=== PATIENT | female | born 1985 | race Caucasian/White ===

== ENCOUNTER 2017-02-17 08:14 | Emergency (ER) | payer SELFPAY ==
[2017-02-17 10:34] LABS: APPEARANCE,URINE SLIGHTLY-CLOUDY; BILIRUBIN,URINE NEGATIVE (NEGATIVE); GLUCOSE, URINE NEGATIVE (NEGATIVE); KETONES,URINE NEGATIVE (NEGATIVE); LEUKOCYTE ESTERASE,URINE TRACE (NEGATIVE); NITRITE,URINE NEGATIVE (NEGATIVE); PROTEIN,URINE NEGATIVE (NEGATIVE); UROBILINOGEN,URINE NEGATIVE mg/dL (<2.0)
--- NOTE | 2017-02-17 11:40 | ER Document Report ---
ED GI/ - General Mode of Arrival: Ambulatory Information source: Patient TRAVEL OUTSIDE OF THE [place] IN LAST 30 DAYS: No - HPI Patient complains to provider of: Other Location: RLQ Similar symptoms previously: Yes Recently seen / treated by doctor: Yes - General Chief Complaint: Pelvic Pain Stated Complaint: ABDOMINAL PAIN Notes: Patient is a 32-year-old female that presents to the emergency department today with complaints of right lower quadrant abdominal pain. Patient states she has had similar pain in the past and was seen and evaluated here. Patient states she had a transvaginal ultrasound done here however she left before obtaining her results a few months back. Patient states since then she followed up with her WRAP CHECKER wants for a routine Pap smear, she states that she attempted to speak with him about this pain and he told her it was "scar tissue". Patient states she has had diarrhea. Patient states she always has this pain over what she believes is her right ovary during menstruation. Patient denies any urinary symptoms, nausea, or vomiting. (MARCY HAYWARD) - Related Data Allergies/Adverse Reactions: No Known Allergies Allergy (Verified 02/17/17 10:08) Past Medical History - General Information source: Patient Last Menstrual Period: 02/13/17 - Social History Smoking Status: Current Every Day Smoker Cigarette use (# per day): Yes Frequency of alcohol use: None Drug Abuse: None Lives with: Family Family History: Arthritis, CAD, CVA, DM, Hyperlipidemia, Hypertension, Malignancy Renal/ Medical History: Reports: Hx Ovarian Cysts Past Surgical History: Reports: Hx Appendectomy, Hx Tubal Ligation - Immunizations Hx Diphtheria, Pertussis, Tetanus Vaccination: Yes Review of Systems - Review of Systems Constitutional: No symptoms reported EENT: No symptoms reported Cardiovascular: No symptoms reported Respiratory: No symptoms reported Gastrointestinal: See HPI, Abdominal pain, Diarrhea. denies: Nausea, Vomiting Genitourinary: denies: Dysuria, Frequency, Urgency Female Genitourinary: No symptoms reported Musculoskeletal: No symptoms reported Skin: No symptoms reported Hematologic/Lymphatic: No symptoms reported Neurological/Psychological: No symptoms reported -: Yes All other systems reviewed and negative Physical Exam - Vital signs Vitals: Temp Pulse Resp BP Pulse Ox 98.1 F 81 18 127/82 H 99 02/17/17 08:16 02/17/17 08:16 02/17/17 08:16 02/17/17 08:16 02/17/17 08:16 - Notes Notes: Physical Exam: General: Alert, appears well. HEENT: Normocephalic. Atraumatic. PERRL. Extraocular movements intact. Oropharynx clear. Neck: Supple. Non-tender. Respiratory: No respiratory distress. Clear and equal breath sounds bilaterally. Cardiovascular: Regular rate and rhythm. Abdominal: Tenderness with palpation of the lower abdomen, worse in the right lower quadrant and suprapubically. No peritoneal signs. No distension. Normal Bowel Sounds. Back: Non-tender. No deformity or step off. Extremities: Moves all four extremities. Upper extremities: Normal inspection. Normal ROM. Lower extremities: Normal inspection. No edema. Normal ROM. Neurological:Normal cognition. AAOx4. Normal speech. Psychological: Normal affect. Normal Mood. Skin: Warm. Dry. Normal color. (MARCY HAYWARD) Course - Re-evaluation Re-evalutation: 02/17/17 17:19 Patient presents complaining of right lower suprapubic and abdominal pain. She says that she gets this pain every time that she gets her menstrual cycle for the last several months now. Patient has had bilateral tubal ligation previously. The last time she had this a few months ago she came into the emergency department and had both pelvic and transvaginal ultrasound she indicates did not reveal anything worrisome but that they did by the ovary on that side. Is a remote history of similar symptoms with ovarian cysts. The patient says she's had 5 days of this constant crampy type pain. She has heavy menstrual cycles. She is not on any hormone therapy. On exam, patient alert and oriented no acute distress vital signs stable patient is afebrile nontoxic appearing. Chest clear and equal bilaterally. Heart rate and rhythm no murmurs. Abdomen is soft and there is some mild suprapubic and right lower quadrant tenderness without peritoneal findings. No guarding. Patient has normal bowel sounds. Medical decision making: Patient is currently on her period and she's been having dysmenorrhea every month for the last several months now. She mentioned it to her waxing machine operator about a month ago and he told her that it is just scar tissue. She has been to the emergency department for this previously and had an ultrasound which did not reveal any worrisome findings. She seems amply stable. She did not have any peritoneal findings. She is not . She is very comfortable after a shot of Toradol. I have had a discussion with her and her and she is going to follow up with her waxing machine operator about possibly starting on OCPs or some other hormone therapy to improve her symptoms from dysmenorrhea. (JOSE PANIAGUA) - Vital Signs Vital signs: Temp Pulse Resp BP Pulse Ox 97.6 F 80 16 120/73 98 02/17/17 13:03 02/17/17 13:03 02/17/17 13:03 02/17/17 13:03 02/17/17 13:03 - Laboratory Laboratory results interpreted by me: 02/17/17 09:55 Urine Blood LARGE H Ur Leukocyte Esterase TRACE H Discharge - Discharge Clinical Impression: Dysmenorrhea Condition: Stable Disposition: HOME, SELF-CARE Instructions: Dysmenorrhea ([facility]), Toradol Injection ([facility]), Anti-Inflammatory Medication ([facility]) Additional Instructions: It is important that you follow up with gynecology for further evaluation of dysmenorrhea. Your waxing machine operator may elect to start you on oral contraceptive pills to help regulate her periods and help with menstrual pain. Return for fevers, bleeding more than 2-3 pads per hour for 3 hours straight, worsening pain, or other worrisome symptoms. Prescriptions: Naproxen 500 mg PO BID #30 tablet Forms: Return to Work Scribe Attestation: 02/17/17 12:44 I personally performed the services described in the documentation, reviewed and edited the documentation which was dictated to the scribe in my presence, and it accurately records my words and actions. (JOSE PANIAGUA) Scribe Documentation - Scribe Written by Jose:: Jose Pina, 02/17/2017 [id number] acting as scribe for :: Potter
[2017-02-17] MEDS ORDERED: KETOROLAC TROMETHAMINE 60 MG/2 ML SDV IM ONE (11:46)
[2017-02-17 13:04] VITALS: BP 120/73
== END 2017-02-17 13:15 | disposition home or self-care (01) ==
LOC: ER 08:14
DX: N94.6 Dysmenorrhea, unspecified (principal); R10.31 Right lower quadrant pain; R10.2 Pelvic and perineal pain; F17.210 Nicotine dependence, cigarettes, uncomplicated; Z98.51 Tubal ligation status
CPT/HCPCS: 99284; 96372; 81025; 81001; J1885